=== PATIENT | female | born 1985 | race Two or more races ===

== ENCOUNTER 2023-05-30 08:24 | Outpatient (CLI) | payer OTHER | END 2023-05-30 08:36 | disposition home or self-care (01) | LOC: RAD 08:24 | PROVIDERS: ATTEND Obstetrics & Gynecology | DX: J06.9 Acute upper respiratory infection, unspecified (principal); Z03.818 Encounter for observation for suspected exposure to other biological agents ruled out ==

== ENCOUNTER 2024-11-22 09:07 | Outpatient (CLI) | payer OTHER | END 2024-11-22 09:21 | disposition home or self-care (01) | LOC: SONOGRAMA 09:07 | DX: N84.0 Polyp of corpus uteri (principal) ==